=== PATIENT | male | born 1955 | race Caucasian/White ===

== ENCOUNTER 2018-01-31 17:13 | Emergency (ER) | payer OTHER, BC ==
[~2018-01-31] VITALS: Ht 167.6 cm; Wt 78.6 kg
[2018-01-31 17:21] VITALS: BP 205/107; PULSE 66; RESP 16; TEMP 97.6; O2SAT 98
[2018-01-31] MEDS ORDERED: SIMV10TA PO (20:14)
[2018-01-31] MEDS ORDERED: LISI10TA PO (20:14)
[2018-01-31 20:15] VITALS: BP 168/103; PULSE 84; RESP 18; O2SAT 97
[2018-01-31] MEDS ORDERED: SODIUM CHLORID 0.9% 500 ML INJ 500 ML IV ONE (20:15)
[2018-01-31] MEDS ORDERED: SODIUM CHLORIDE 0.9% FLUSH 10 ML FLUSH IVF PRN (20:15)
--- NOTE | 2018-01-31 20:24 | PD ---
HPI Chief Complaint: Hypertension Time Seen by Provider: 20:03 Travel History International Travel<30 days: No Contact w/Intl Traveler<30days: No Traveled to known affect area: No History of Present Illness HPI Patient is a 63-year-old male who presents the emergency room for evaluation of dizziness. Patient reports that he has history of hypertension as well as hyperlipidemia, patient reports that he is here visiting from [place]. Patient reports that he takes lisinopril/hydrochlorothiazide 5 mg daily, reports that he was lying down today and all of a sudden felt dizzy. Patient checked his blood pressure and noticed that it was high, reports that it was 174 /107. Patient reports that he thought that his symptoms were due to his blood pressure being elevated. Patient reports that he has been compliant with his medications. Patient denies any vision changes, denies any nausea vomiting with the symptoms. Patient with no chest pain or shortness of breath. Patient reports that he feels slightly lightheaded, he does not feel ataxic. Patient endorses that the only meal he had today was breakfast, he does only eat one meal per day as he likes to be thin. [facility] Past Medical History High Cholesterol: Yes Hypertension: Yes ?: Not Past Surgical History Surgical History: No Previous Surgery Social History Alcohol Use: Yes Tobacco Use: Yes Substance Use: No Allergies-Medications (Allergen,Severity, Reaction): Coded Allergies: No Known Allergies (Unverified , 01/31/18) Reported Meds & Prescriptions Reported Meds & Active Scripts Active Reported Simvastatin 10 Mg Tab 10 Mg PO DAILY Lisinopril-Hctz 10-12.5 Mg Tab 0.5 Tab PO DAILY Review of Systems General / Constitutional: No: Fever Eyes: No: Visual changes HENT: Positive: Lightheadedness, No: Headaches, Neck Pain Cardiovascular: No: Chest Pain or Discomfort, Palpitations, Irregular Rhythm, Tachycardia, Diaphoresis Respiratory: No: Shortness of Breath Gastrointestinal: No: Abdominal Pain Genitourinary: No: Dysuria Musculoskeletal: No: Pain Skin: No Rash Neurologic: Positive: Dizziness, No: Weakness, Syncope Psychiatric: No: Depression Endocrine: No: Polydipsia Hematologic/Lymphatic: No: Easy Bruising Physical Exam Narrative GENERAL: NAD SKIN: Focused skin assessment warm/dry. HEAD: Atraumatic. Normocephalic. EYES: Pupils equal and round. No scleral icterus. No injection or drainage. ENT: No nasal bleeding or discharge. Mucous membranes pink and moist. NECK: Trachea midline. No JVD. CARDIOVASCULAR: Regular rate and rhythm. No murmur appreciated. RESPIRATORY: No accessory muscle use. Clear to auscultation. Breath sounds equal bilaterally. GASTROINTESTINAL: Abdomen soft, non-tender, nondistended. Hepatic and splenic margins not palpable. MUSCULOSKELETAL: No obvious deformities. No clubbing. No cyanosis. No edema. NEUROLOGICAL: Awake and alert. No obvious cranial nerve deficits. Motor grossly within normal limits. Normal speech. CN 2-12 grossly intact with no neurological deficits PSYCHIATRIC: Appropriate mood and affect; insight and judgment normal. Data Data Last Documented VS Vital Signs Date Time Temp Pulse Resp B/P (MAP) Pulse Ox O2 Delivery O2 Flow Rate FiO2 01/31/18 21:27 57 18 158/82 (107) 97 Room Air 01/31/18 17:21 97.6 Orders Orders Electrocardiogram (01/31/18 20:11) Basic Metabolic Panel (Bmp) (01/31/18 20:11) Ckmb (Isoenzyme) Profile (01/31/18 20:11) Complete Blood Count With Diff (01/31/18 20:11) Magnesium (Mg) (01/31/18 20:11) Prothrombin Time / Inr (Pt) (01/31/18 20:11) Act Partial Throm Time (Ptt) (01/31/18 20:11) Troponin I (01/31/18 20:11) Lipase (01/31/18 20:11) Chest, Single Ap (01/31/18 20:11) Ecg Monitoring (01/31/18 20:11) Iv Access Insert/Monitor (01/31/18 20:11) Oximetry (01/31/18 20:11) Sodium Chloride 0.9% Flush (Ns Flush) (01/31/18 20:15) Sodium Chlorid 0.9% 500 Ml Inj (Ns 500 M (01/31/18 20:15) Ct Brain W/O Iv Contrast(Rout) (01/31/18 20:11) CKMB (01/31/18 20:30) CKMB% (01/31/18 20:30) Hydralazine Inj (Apresoline Inj) (01/31/18 21:30) Electrocardiogram (01/31/18 ) Labs Laboratory Tests Test 01/31/18 20:30 White Blood Count 8.1 TH/MM3 Red Blood Count 5.72 MIL/MM3 Hemoglobin 15.8 GM/DL Hematocrit 48.6 % Mean Corpuscular Volume 85.0 FL Mean Corpuscular Hemoglobin 27.7 PG Mean Corpuscular Hemoglobin Concent 32.6 % Red Cell Distribution Width 13.9 % Platelet Count 229 TH/MM3 Mean Platelet Volume 6.9 FL Neutrophils (%) (Auto) 64.9 % Lymphocytes (%) (Auto) 26.2 % Monocytes (%) (Auto) 7.1 % Eosinophils (%) (Auto) 0.9 % Basophils (%) (Auto) 0.9 % Neutrophils # (Auto) 5.2 TH/MM3 Lymphocytes # (Auto) 2.1 TH/MM3 Monocytes # (Auto) 0.6 TH/MM3 Eosinophils # (Auto) 0.1 TH/MM3 Basophils # (Auto) 0.1 TH/MM3 CBC Comment DIFF FINAL Differential Comment Prothrombin Time 10.6 SEC Prothromb Time International Ratio 1.0 RATIO Activated Partial Thromboplast Time 25.9 SEC Blood Urea Nitrogen 12 MG/DL Creatinine 0.96 MG/DL Random Glucose 92 MG/DL Calcium Level 8.9 MG/DL Magnesium Level 2.1 MG/DL Sodium Level 136 MEQ/L Potassium Level 4.0 MEQ/L Chloride Level 103 MEQ/L Carbon Dioxide Level 28.7 MEQ/L Anion Gap 4 MEQ/L Estimat Glomerular Filtration Rate 79 ML/MIN Total Creatine Kinase 119 U/L Creatine Kinase MB 2.1 NG/ML Troponin I LESS THAN 0.02 NG/ML Lipase 141 U/L MDM Medical Decision Making Medical Screen Exam Complete: Yes Emergency Medical Condition: Yes Medical Record Reviewed: Yes Interpretation(s) EKG at 2135: Sinus kane at 55bpm, qt/qtc: 408/396, no acute st or t wave changes Vital Signs Date Time Temp Pulse Resp B/P (MAP) Pulse Ox O2 Delivery O2 Flow Rate FiO2 01/31/18 17:21 97.6 66 16 205/107 (139) 98 Differential Diagnosis Accelerated hypertension, hypertensive emergency, electrolyte abnormality, ich Narrative Course Patient is a 63-year-old male who presents the emergency room for evaluation of hypertension. Patient does take lisinopril/hydrochlorothiazide 5 mg daily, reports that he noticed his blood pressure a little bit elevated today and felt dizzy. Vital Signs Date Time Temp Pulse Resp B/P (MAP) Pulse Ox O2 Delivery O2 Flow Rate FiO2 01/31/18 21:27 57 18 158/82 (107) 97 Room Air 01/31/18 20:15 84 18 168/103 (124) 97 Room Air 01/31/18 20:15 97 01/31/18 20:15 84 97 Room Air 01/31/18 17:21 97.6 66 16 205/107 (139) 98 CBC & BMP Diagram 01/31/18 20:30 Calcium Level 8.9, Magnesium Level 2.1 Patient was monitored, repeat blood pressure was 158/82. Patient reports that he is feeling much better this time. Discussed with patient need to take his full dose of lisinopril as he has been taking half of his dose of lisinopril/ hydrochlorothiazide 10 mg. Patient will follow up with his primary care doctor , he will return to emergency room as needed. Patient thankful for care. I also encouraged patient to eat more than 1 meal a day as he only ate breakfast today and this could also be the source of his dizziness. Diagnosis Primary Impression: Hypertension Qualified Codes: I10 - Essential (primary) hypertension Additional Impression: Dizziness Patient Instructions: General Instructions Additional Instructions: Please provide patient with a copy of their lab work and studies at discharge* * Please follow up with your primary care doctor in 2-3 days Return to the ER if symptoms worsen or progress Return to the ER as needed Disposition: 01 DISCHARGE HOME Condition: Stable Jazmín Tan DO Jan 31, 2018 20:24
[2018-01-31 20:37] LABS: AUTOMATED NEUTROPHIL # 5.2 TH/MM3 (1.8-7.7); BASOPHIL # 0.1 TH/MM3 (0-0.2); BASOPHIL % 0.9 % (0.0-2.0); EOSINOPHIL # 0.1 TH/MM3 (0-0.4); EOSINOPHIL % 0.9 % (0.0-4.0); HEMATOCRIT 48.6 % (39.0-51.0); HEMOGLOBIN 15.8 GM/DL (13.0-17.0); LYMPH % 26.2 % (9.0-44.0); LYMPHOCYTE # 2.1 TH/MM3 (1.0-4.8); MEAN CORPUSCULAR HEMOGLOBIN 27.7 PG (27.0-34.0); MEAN CORPUSCULAR HGB CONC 32.6 % (32.0-36.0); MEAN PLATELET VOLUME 6.9 FL (7.0-11.0); MONO % 7.1 % (0.0-8.0); MONOCYTE # 0.6 TH/MM3 (0-0.9); NEUT % 64.9 % (16.0-70.0); PLATELET COUNT 229 TH/MM3 (150-450); RED BLOOD COUNT 5.72 MIL/MM3 (4.50-5.90); RED CELL DISTRIBUTION WIDTH 13.9 % (11.6-17.2); WHITE BLOOD COUNT 8.1 TH/MM3 (4.0-11.0)
[2018-01-31 20:48] LABS: CHLORIDE 103 MEQ/L (98-107); SODIUM (NA) 136 MEQ/L (136-145)
[2018-01-31 20:51] LABS: BICARBONATE 28.7 MEQ/L (21.0-32.0); CALCIUM 8.9 MG/DL (8.5-10.1); GLUCOSE,RANDOM 92 MG/DL (74-106); MAGNESIUM 2.1 MG/DL (1.5-2.5)
[2018-01-31 20:52] LABS: BLOOD UREA NITROGEN 12 MG/DL (7-18)
--- NOTE | 2018-01-31 20:53 | RADRPT ---
EXAM DATE/TIME: 01/31/2018 20:27 [facility] COMPARISON: No previous studies available for comparison. INDICATIONS : Syncopal episode. MEDICAL HISTORY : Hypertension. SURGICAL HISTORY : None. ENCOUNTER: Initial ACUITY: 1 day PAIN SCORE: 0/10 LOCATION: Bilateral chest FINDINGS: A single view of the chest demonstrates the lungs to be symmetrically aerated without evidence of mas s, infiltrate or effusion. The cardiomediastinal contours are unremarkable. Osseous structures are intact. CONCLUSION: Negative one view chest x-ray. Dov Arroyo MD on January 31, 2018 at 20:50 Board Certified Radiologist. This report was verified electronically.
[2018-01-31 20:54] LABS: CREATININE 0.96 MG/DL (0.60-1.30); GLOMERULAR FILTRATION RATE 79 ML/MIN (>89); PROTHROMBIN TIME - PATIENT 10.6 SEC (9.8-11.6)
[2018-01-31 20:59] LABS: TROPONIN I LESS THAN 0.02 NG/ML (0.02-0.05)
[2018-01-31 21:27] VITALS: BP 158/82; PULSE 57; RESP 18; O2SAT 97
[2018-01-31] MEDS ORDERED: hydrALAZINE HCL 20 MG/ML VIAL IV PUSH ONE (21:30)
--- NOTE | 2018-01-31 21:51 | EKG ---
Date Performed: 01/31/2018 Time Performed: 20:55:10 PTAGE: 63 years EKG: SINUS BRADYCARDIA WITH SHORT CA INTERVAL LEFT ATRIAL ENLARGEMENT BORDERLINE LEFT AXIS DEVIA TION LOW QRS VOLTAGE IN EXTREMITY LEADS ABNORMAL ECG NO PREVIOUS TRACING DOCTOR: Jean Paul Lundy Interpretating Date/Time 01/31/2018 21:49:26
--- NOTE | 2018-01-31 22:31 | RADRPT ---
EXAM DATE/TIME: 01/31/2018 22:07 [facility] COMPARISON: No previous studies available for comparison. INDICATIONS : Dizziness. RADIATION DOSE: 50.69 CTDIvol (mGy) MEDICAL HISTORY : Hypertension. SURGICAL HISTORY : None. ENCOUNTER: Initial ACUITY: 1 day PAIN SCALE: 0/10 LOCATION: cranial TECHNIQUE: Multiple contiguous axial images were obtained of the head. Using automated exposure control and adj ustment of the mA and/or kV according to patient size, radiation dose was kept as low as reasonably a chievable to obtain optimal diagnostic quality images. DICOM format image data is available electro nically for review and comparison. FINDINGS: CEREBRUM: The ventricles are normal for age. No evidence of midline shift, mass lesion, hemorrhage or acute in farction. No extra-axial fluid collections are seen. POSTERIOR FOSSA: The cerebellum and brainstem are intact. The 4th ventricle is midline. The cerebellopontine angle i s unremarkable. EXTRACRANIAL: The visualized portion of the orbits is intact. SKULL: The calvaria is intact. No evidence of skull fracture. CONCLUSION: Negative noncontrast head CT. Dov Arroyo MD on January 31, 2018 at 22:29 Board Certified Radiologist. This report was verified electronically.
[2018-01-31 22:52] VITALS: BP 156/84; PULSE 55; RESP 18; O2SAT 97
--- NOTE | 2018-02-01 05:27 | EKG ---
Date Performed: 01/31/2018 Time Performed: 21:35:30 PTAGE: 63 years EKG: SINUS BRADYCARDIA BORDERLINE ECG PREVIOUS TRACING : 01/31/2018 20.55 No significant change from previous tracing noted. DOCTOR: Jean Paul Lundy Interpretating Date/Time 02/01/2018 05:25:51
== END 2018-01-31 22:55 | disposition home or self-care (01) ==
LOC: PHED 17:13
DX: I10 Essential (primary) hypertension (principal); R42 Dizziness and giddiness; R00.1 Bradycardia, unspecified; R94.31 Abnormal electrocardiogram [ECG] [EKG]; E78.5 Hyperlipidemia, unspecified; E78.00 Pure hypercholesterolemia, unspecified; Z72.0 Tobacco use; Z79.899 Other long term (current) drug therapy
CPT/HCPCS: 70450; 71045; 80048; 82550; 82552; 83690; 83735; 84484; 85025; 85610; 85730; 93005; 96360; 99285; J7040